=== PATIENT | male | born 1955 | race Caucasian/White ===

== ENCOUNTER → 2019-04-10 08:08 | Outpatient (CLI) | payer BC ==
--- NOTE | ~2019-04-10 | ST ---
PATIENT:DENIS VARNER MEDICAL RECORD: [id number] SEX: M LOCATION:[facility] ORDER #: ADMISSION DATE: 04/10/19 AGE OF PATIENT: 64 REFERRING PHYSICIAN: INTERPRETING PHYSICIAN: VIJI SALAZAR MD DATE OF SERVICE: 04/10/2019 Nuclear Stress Test INDICATIONS: Angina, hypertension, hyperlipidemia, shortness of breath. He was exercised on standard Lexiscan protocol with 25 mCi of sestamibi injected at peak stress, 9 mCi were used previously for rest images. FINDINGS: Gated SPECT reveals preserved ejection fraction at 55% with good wall motioning and thickening and brightening throughout all segments. SPECT IMAGING: Cardiolite was used as myocardial fusion agent. There is moderate ischemia throughout the anteroapical segments. There is as well moderate ischemia throughout the inferior apical segments. This includes the basal, mid apical anterior segments as well as the apex itself, the mid inferior and apical inferior segments. The degree of reversibility is as stated above, it is moderate on both. The amount of myocardium involved is large. OVERALL IMPRESSION: This is a high-risk abnormal nuclear stress test, large area of inducible ischemia anteriorly, apically as well as inferiorly suggestive of multivessel coronary artery disease. We will proceed with coronary angiography as followup study. TRANSINT:[id number] Voice Confirmation ID: [id number] DOCUMENT ID: [id number] VIJI SALAZAR MD CC: ROSSI MCINTYRE [id number] DICTATION DATE: 04/11/19 1028 GRAPHIC MANAGER: 04/12/19 0323 DEP CLI 04/10/19 [facility] [address] [id number]
== END | disposition home or self-care (01) ==
LOC: D.HCCARDIO 08:08
PROVIDERS: ATTEND Internal Medicine Interventional Cardiology
DX: I20.9 Angina pectoris, unspecified (principal)

== ENCOUNTER 2019-04-23 11:25 | Outpatient (CLI) | payer BC ==
[~2019-04-23] VITALS: Ht 182.9 cm; Wt 136.4 kg
--- NOTE | ~2019-04-23 | HEMODYNAMI ---
PATIENT:DENIS VARNER MEDICAL RECORD: [id number] : 57 LOCATION:[facility] ADMISSION DATE: 04/23/19 Generatedon:04/23/201915:21 Patient name: DENIS VARNER Patient #: [id number] SSN: DO B: 1955 Date of study: 04/23/2019 Page: Of Hemodynamic Procedure Report Patient Data Patient Demographics Procedure consent was obtained First Name: DENIS Gender: Male Last Name: TELLY : 1955 Patient #: [id number] Age: 64 year(s) Race: Unknown Additional ID: [id number] Contact details [address]: [address] [place] [address] State: [place] City: [place] Zip code: [address] Admission Admission Data Admission Date: 04/23/2019 Admission Time: 11:25 Weight (lbs.): 299.83 Weight (kg.): 136 Lab Results Lab Result Date: 04/23/2019 Lab Result Time: 0:00 Biochemistry Name Units Result Min Max BUN mg/dl 16 --(---*)-- 7 18 Creatinine mg/dl 0.8 --(-*--)-- 0.6 1.3 CBC Name Units Result Min Max Hemoglobin g/dl 14.4 --(*---)-- 13.5 17.5 Procedure Procedure Types Cath Procedure Diagnostic Procedure [facility] w/Coronaries PCI Procedure Coronary Stent Coronary Stent Initial Procedure Description Procedure Date Procedure Date: 04/23/2019 Procedure Start Time: 14:43 Procedure End Time: 15:11 Procedure Staff Name Function Chandler Felix MD Performing Physician Matthew Sims RT Monitor Alix Medeiros RT Scrub Giacomo Gutierrez RN Nurse Procedure Data Cath Procedure Fluoroscopy Diagnostic fluoroscopy Total fluoroscopy Time: 5.7 time: 5.7 min min Diagnostic fluoroscopy Total fluoroscopy dose: dose: 1291 mGy 1291 mGy Contrast Material Contrast Material Type Amount (ml) Isovue 370 95 Entry Location Entry Primary Successful Side Size Upsize Upsize Entry Closure Liang ccessful Closure Location (Fr) 1 (Fr) 2 (Fr) Remarks Device Remarks Radial Right 6 Fr Mechanical artery Short Compression Femoral Right 6 Fr Exoseal artery Short Estimated blood loss: 10 ml Diagnostic catheters Device Type Used For End Catheter Placement DIAGNOSTIC Wilson 110cm 5 Procedure Fr catheter (062139) Procedure Complications No complications Procedure Medications Medication Administration Route Dosage 0.9% NaCl I.V. 100 ml/hr Oxygen etCO2 Nasal cannula 2 l/min Heparin Flush Bag added to field 2 bags (1000units/500ml NS) Lidocaine 2% added to field 20 Radial Cocktail added to field 1 syringe (Verapamil 2mg/Nitro 400mcg/Heparin 1500units) Versed I.V. 2 mg Fentanyl I.V. Radial Cocktail I.A. 1 syringe (Verapamil 2mg/Nitro 400mcg/Heparin 1500units) Heparin Bolus I.V. 5000 units Integrilin (Bolus I.V. 11.3 ml 2mg/ml) Integrilin (Bolus wasted 8.4 ml 2mg/ml) Integrilin (Bolus I.C. 11.3 ml 2mg/ml) Plavix P.O. 600 mg Hemodynamics Rest HGB: 14.4 (g/dl) Heart Rate: 72 (bpm) Pressure Samples Time Site Value (mmHg) Purpose Heart Use Rate(bpm) 14:47 LV 78/13,17 Snapshot 75 14:48 LV 115/1,14 Snapshot 78 14:48 AO 82/64(74) Pullback 76 14:48 LV 78/5,23 Pullback 76 14:59 AO 87/61(73) Snapshot 72 Gradients Valve Time Site 1 Site 2 Mean SEP/DFP Peak To Heart Use (mmHg) (sec/min) Peak Rate (mmHg) (bpm) Aortic 14:48 LV AO 0 76 78/5,23 82/64(74) Calculations Valve P-P Mean Valve Index Valve Source Name Gradient Area Flow (cm2) Aortic 0 0 Snapshots Pre Cath Intra NCS Post Cath Vital Signs Time Heart Resp SPO2 etCO2 NIBP (mmHg) Rhythm Pain Sedation Rate (ipm) (%) (mmHg) Status Level (bpm) 14:27:57 72 20 95 0 104/84(100) NSR 0 (11) 10(A) , No pain 14:32:11 70 14 96 30.5 113/74(82) NSR 0 (11) 10(A) , No pain 14:36:27 69 16 91 0 110/74(91) NSR 0 (11) 10(A) , No pain 14:40:38 67 13 92 34.3 110/69(95) NSR 0 (11) 10(A) , No pain 14:44:48 68 12 93 37.2 112/69(95) NSR 0 (11) 10(A) , No pain 14:49:02 74 12 91 41 108/65(79) NSR 0 (11) 10(A) , No pain 14:53:16 73 12 93 32 109/74(92) NSR 0 (11) 10(A) , No pain 14:57:32 71 12 93 38 110/73(85) NSR 0 (11) 10(A) , No pain 15:01:46 70 13 94 38.8 117/77(95) NSR 0 (11) 10(A) , No pain 15:06:02 74 14 94 38.7 133/80(105) NSR 0 (11) 10(A) , No pain 15:10:23 74 14 95 36.6 139/88(100) NSR 0 (11) 10(A) , No pain Medications Time Medication Route Dose Verified Delivered Reason Not es Effectiveness by by 14:29:59 0.9% NaCl I.V. 100 Giacomo Giacomo Per physician ml/hr Brenda Gutierrez RN, RN 14:30:08 Oxygen etCO2 2 l/min Giacomo Giacomo for low 02 sats Nasal Lorigan Lorrosi cannula DEONNA RN 14:30:21 Heparin Flush added 2 bags Giacomo Giacomo used for Bag to Lorigan Lorigan procedure (1000units/500ml field YING RN NS) 14:30:32 Lidocaine 2% added 20ml Giacomo Giacomo for local to vial Lorigan Lorigan anesthetic field DEONNA YING 14:30:41 Radial Cocktail added 1 Giacomo Giacomo used for (Verapamil to syringe Lorigan Lorigan procedure 2mg/Nitro field YING RN 400mcg/Heparin 1500units) 14:35:57 Versed I.V. 2 mg Giacomo Giacomo for sedation Brenda Gutierrez RN, RN 14:36:05 Fentanyl I.V. Giacomo Giacomo for sedation Brenda Gutierrez RN, RN 14:46:27 Radial Cocktail I.A. 1 Giacomo Chandler for (Verapamil syringe Brenda Felix vasodilation 2mg/Nitro DEONNA VICENTE 400mcg/Heparin 1500units) 14:56:29 Heparin Bolus I.V. 5000 Giacomo Giacomo for units Brenda Gutierrez anticoagulation RN RN 14:56:53 Integrilin I.V. 11.3 ml Giacomo Giacomo for (Bolus 2mg/ml) Brenda Gutierrez antiplatelet DEONNA YING therapy 14:57:08 Integrilin wasted 8.4 ml Giacomo Giacomo to sharp's (Bolus 2mg/ml) Brenda Gutierrez RN, RN 15:06:28 Integrilin I.C. 11.3 ml Giacomo Chandler for (Bolus 2mg/ml) Brenda Felix antiplatelet DEONNA VICENTE therapy 15:14:20 Plavix P.O. 600 mg Giacomo Giacomo for Brenda Gutierrez antiplatelet DEONNA YING therapy Procedure Log Time Note 14:05:26 Giacomo Gutierrez RN sent for patient. Start room use. 14:10:16 Signed procedure consent form obtained from patient. 14:10:17 Diagnostic Cath status Elective 14:10:19 Time tracking: Regular hours (M-F 7:00 - 5:00) 14:10:22 Plan of Care:Hemodynamics will remain stable., Cardiac rhythm will remain stable., Comfort level will be maintained., Respiratory function will remain adequate., Patient/ family verbilizes understanding of procedure., Procedure tolerated without complication., Recovers from procedure without complications.. 14:21:12 Patient received from Pre/Post Procedure Room to CCL 1 Alert and oriented. Tansferred to table in Supine position. 14:21:14 Warm blankets applied, and nikko hugger turned on for patient comfort. 14:21:16 Correct patient and procedure confirmed by team. 14:21:18 ECG and BP/O2 sat monitors applied to patient. 14:26:51 Baseline sample Acquired. 14:26:51 Vital chart was started 14:26:55 Rhythm: sinus rhythm 14:26:57 Full Disclosure recording started 14:27:08 H&P Date Dictated: 04/04/2019 Within 30 days and on chart., H&P Addendum completed by physician on day of procedure. (MUST COMPLETE FOR ALL OUTPATIENTS). 14:27:09 Pre-procedure instructions explained to patient. 14:27:10 Pre-op teaching completed and patient verbalized understanding. 14:27:12 Family in patients room. 14:27:13 Patient NPO since Midnight. 14:27:15 Is the patient allergic to Iodine/contrast media? No. 14:27:20 Is patient on blood thinner?No 14:27:22 Patient diabetic? No. 14:27:24 Previous problem with sedation/anesthesia? No ? 14:27:24 Snore? Yes 14:27:26 Sleep apnea? No 14:27:27 Deviated septum? No 14:27:27 Opens mouth fully? Yes 14:27:28 Sticks out tongue? Yes 14:27:30 Airway obstruction? No ? 14:27:31 Dentures? No ? 14:29:59 0.9% NaCl 100 ml/hr I.V. was administered by Giacomo Gutierrez RN; Per physician; 14:30:08 Oxygen 2 l/min etCO2 Nasal cannula was administered by Giacomo Gutierrez RN; for low 02 sats; 14:30:21 Heparin Flush Bag (1000units/500ml NS) 2 bags added to field was administered by Giacomo Gutierrez RN; used for procedure; 14:30:32 Lidocaine 2% 20ml vial added to field was administered by Giacomo Gutierrez RN; for local anesthetic; 14:30:41 Radial Cocktail (Verapamil 2mg/Nitro 400mcg/Heparin 1500units) 1 syringe added to field was administered by Giacomo Gutierrez RN; used for procedure; 14:33:46 Pre procedure: right dorsailis pedis pulse 1+ Palpable, but thready & weak; easily obliterated 14:33:48 Modified Andrew's test Ulnar < 7 seconds 14:33:50 Patient pain scale 0/10 ?. 14:33:56 IV patent on arrival in left forearm with 0.9% NaCl at [facility]. 14:33:58 Lab results completed and on chart. 14:34:01 Right Radial & Right Groin area was prepped with chlora-prep and draped in sterile fashion 14:34:02 Alarms reviewed by R. N. 14:34:03 Sharps counted by scrub and verified by R.N. 14:34:06 Use device set Radial Dx or PCI 14:34:08 Tegaderm 4 x 4 (1626W) opened to sterile field. 14:34:08 ACIST Manifold (23816) opened to sterile field. 14:34:09 ACIST Hand Control (56203) opened to sterile field. 14:34:10 ACIST Syringe (87491) opened to sterile field. 14:34:11 Medline Cath Pack ([id number]) opened to sterile field. 14:34:11 Bag Decanter (2002S) opened to sterile field. 14:34:12 DIAGNOSTIC WIRE .035 260cm J wire (933255) opened to sterile field. 14:34:12 MBrace Wrist Support (670260028) opened to sterile field. 14:34:15 SHEATH 6FR Slender (71-7842) opened to sterile field. 14:35:07 --------ALL STOP TIME OUT------ 14:35:08 Final Timeout: patient, procedure, and site verified with staff and physician. All members of the team are in agreement. 14:35:10 Right Radial & Right Groin site verified by team. 14:35:13 Maximum allowable Isovue 370 dose 300ml. Physician notified. (300ml for normal creatinines. For patients with creatinine of 1.7 or higher multiply weight(kg) x 5 divided by creatinine.) 14:35:17 Fire Safety Assessment: A--An alcohol-based skin anteseptic being used preoperatively., C--Open oxygen or nitrous oxide is being used., D--An ESU, laser, or fiber-optic light is being used. 14:35:20 Physical assessment completed. ASA score P 2 - A patient with mild systemic disease as per Chandler Felix MD. 14:35:23 Sedation plan: IV Moderate Sedation Medication:Versed, Fentanyl 14:35:57 Versed 2 mg I.V. was administered by Giacomo Gutierrez RN; for sedation; 14:36:05 Fentanyl I.V. was administered by Giacomo Gutierrez RN; for sedation; 14:36:15 Patient Weight : 299.83 lbs 14:36:40 Lab Result : Creatinine 0.8 mg/dl 14:36:40 Lab Result : BUN 16 mg/dl 14:36:40 Lab Result : Hemoglobin 14.4 g/dl 14:38:44 Zero performed for pressure channel P1 14:42:46 Procedure started. 14:43:18 Local anesthetic to right radial artery with Lidocaine 2% by Chandler Felix MD.INITIAL ACCESS ONLY 14:46:25 A 6 Fr Short sheath was inserted into the Right Radial artery 14:46:27 Radial Cocktail (Verapamil 2mg/Nitro 400mcg/Heparin 1500units) 1 syringe I.A. was administered by Chandler Felix MD; for vasodilation; 14:48:00 A DIAGNOSTIC Wilson 110cm 5 Fr catheter (565555) was advanced over the wire and used for Procedure. 14:48:36 LV angiography performed. 14:48:45 LV gram done using FERNANDEZ 14:48:52 EF : 55 % 14:49:00 Injector settings: Ml/sec: 5, Volume: 15, 14:49:11 LCA angiography performed. 14:50:23 RCA angiography performed. 14:52:16 Catheter removed. 14:52:[address] BARRAZA PCI 14:52:20 SHEATH 6FR [place] (BKF320) opened to sterile field. 14:52:25 Local anesthetic to right femoral artery with Lidocaine 2% by Chandler Felix MD.ADDITIONAL ACCESS 14:53:04 WHISPER 300cm guide wire ([id number]) opened to sterile field. 14:53:14 INFLATOR Merit BasixCompak (ZR5230) opened to sterile field. 14:53:27 A 6 Fr Short sheath was inserted into the Right Femoral artery 14:53:57 GUIDE 6FR XBLAD 4.0 catheter ([id number]) opened to sterile field. 14:54:06 6 Fr XBLAD 4 guide catheter was inserted over the wire 14:55:50 Whisper wire advanced. 14:56:08 Pre PCI Site: [place] pLAD has 99% stenosis. 14:56:29 Heparin Bolus 5000 units I.V. was administered by Giacomo Gutierrez RN; for anticoagulation; 14:56:53 Integrilin (Bolus 2mg/ml) 11.3 ml I.V. was administered by Giacomo Gutierrez RN; for antiplatelet therapy; 14:57:08 Integrilin (Bolus 2mg/ml) 8.4 ml wasted was administered by Giacomo Gutierrez RN; to sharp's; 14:58:53 Wire advanced across lesion. 15:00:17 Inflate balloon Inflation number: 1 A EMERGE OTW 3.0 x 15 balloon ([id number]) was prepped and advanced across the Prox LAD 99, then inflated to 10 ARIANNE for 0:30 (min:sec) . 15:01:32 Balloon removed over the wire. 15:03:07 Place stent Inflation Number: 2 A ANDREA OTW 3.5 x 22 stent ([id number]) was prepped and advanced across the Prox LAD 99. The stent was deployed at 14 ARIANNE for 0:45 (min:sec) 0. 15:04:23 Stent catheter was removed intact over wire. 15:06:28 Integrilin (Bolus 2mg/ml) 11.3 ml I.C. was administered by Chandler Felix MD; for antiplatelet therapy; 15:07:40 EXOSEAL 6Fr (EX600) opened to sterile field. 15:07:50 Wire removed. 15:07:51 Guide catheter removed. 15:08:13 Sheath removed intact; hemostasis achieved with Exoseal to the Right Femoral artery. 15:08:19 TR BAND Large ([id number]) opened to sterile field. 15:08:31 Sheath removed intact; hemostasis achieved with Mechanical Compression to the Right Radial artery. 15:08:33 Procedure ended.(Physican Out) 15:09:42 Fluoroscopy dose: 1291 mGy 15:09:42 Flurop Dose total: 1291 15:09:47 Fluoroscopy time 05.70 minutes. 15:09:54 Contrast amount:Isovue 370 95ml. 15:09:55 Sharps counted by scrub and verified by R.N. 15:09:58 Insertion/operative site no bleeding no hematoma. 15:10:02 Post-op/insertion site Right Femoral artery dressed using a 4 x 4 and Tegaderm. 15:10:05 TR band inflated with 12cc of air. 15:10:07 Post Procedure Pulses reassessed and unchanged 15:10:10 Post-procedure physical assessment completed. ASA score P 2 - A patient with mild systemic disease as per Chandler Felix MD. 15:10:12 Post procedure rhythm: unchanged. 15:10:15 Estimated blood loss: 10 ml 15:10:22 Post procedure instruction explained to patient.Patient verbalizes understanding. 15:10:22 Patient needs reinforcement of post procedure teaching. 15:10:32 Procedure type changed to Cath procedure, Diagnostic procedure, LHC, LHC w/Coronaries, PCI procedure, Coronary Stent, Coronary Stent Initial 15:10:35 Procedure Complication : No complications 15:11:00 Procedure and supply charges have been captured, reviewed, submitted and are correct. 15:11:00 Vital chart was stopped 15:11:01 See physician's report for complete and final results. 15:11:02 Report given to Pre/Post Procedure Room. 15:11:04 Patient transfered to Pre/Post Procedure Room with Stretcher. 15:11:07 Procedure ended. 15:11:07 Full Disclosure recording stopped 15:11:11 End room use (Document Last) 15:14:20 Plavix 600 mg P.O. was administered by Giacomo Gutierrez RN; for antiplatelet therapy; Intervention Summary Intervention Notes Time ActionType Lesion and Equipment Action# Pressure Duration Attributes Used 15:00:17 Inflate Prox LAD EMERGE OTW 1 10 00:30 balloon 3.0 x 15 balloon ([id number]) 15:03:07 Place stent Prox LAD ANDREA OTW 3.5 2 14 00:45 x 22 stent ([id number]) Device Usage Item Name Manufacture Quantity Catalog Number Hospital Part Current M inimal Lot# / Charge Number Stock Stock Serial# Code Tegaderm 4 x 3M 1 1626W 211952 202595 923306 5 4 (1626W) ACIST Acist 1 12953 438155 173275 219631 5 Manifold Medical (04528) Systems Inc ACIST Hand Acist 1 32092 625079 201448 951534 5 Control Medical (45152) Systems Inc ACIST Syringe Acist 1 83754 890905 414349 232233 2 0 (68791) Medical Systems Inc Medline Cath Medline 1 [id number] 016009 08682 131549 5 Pack (ORDZ49822) Bag Decanter Microtek 1 2001S 450118 30055 221819 5 (2001S) Medical Inc. DIAGNOSTIC St Bill 1 126807 747555 623578 466561 3 0 WIRE .035 260cm J wire (890838) MBrace Wrist Advanced 1 140-0250-00 631105 56990 375416 5 Support Vascular (591890449) Dynamics SHEATH 6FR Terumo 1 [id number] 892859 336401 564784 5 Slender (80-1060) DIAGNOSTIC Terumo 1 40-5013 076020 274205 705645 5 Wilson 110cm 5 Fr catheter (267077) SHEATH 6FR Terumo 1 ULR862 583636 005222 772406 4 0 [place] (UJX876) WHISPER 300cm Bustos 1 [id number] 135715 795224 735810 5 guide wire Vascular (2159252CF) INFLATOR Merit 1 NX2542 237885 975772 405588 1 5 [employer] Medical BasixCompak (SH5162) GUIDE 6FR Cardinal 1 89812114 801446 551103 922191 3 XBLAD 4.0 Health catheter (01143796) EMERGE OTW [place] 1 [id number] 898491 543330 781613 5 [id number] 3.0 x 15 Scientific balloon ([id number]) ANDREA OTW 3.5 Medtronic 1 [id number] 983097 1213588 576536 5 [id number] x 22 stent ([id number]) EXOSEAL 6Fr Cardinal 1 EX600 767613 143970 350589 1 0 (EX600) Health TR BAND Large Terumo 1 [id number] 547325 424589 026280 4 0 (AUI38DGU) Signature Audit Datil Stage Time Signature Unsigned Intra-Procedure 04/23/2019 Matthew Sims 3:21:42 PM RT(R) Signatures Monitor : Matthew Sims RT Signature : Date : Time : [address] [place] [address]
[2019-04-23] MEDS ORDERED: OMEPRAZOLE40 MG PO (12:05)
[2019-04-23] MEDS ORDERED: TENORMIN50 MG PO (12:06)
[2019-04-23] MEDS ORDERED: PROVENTIL/2.5 MG/3 M INH (12:06)
[2019-04-23] MEDS ORDERED: GEMFIBROZIL600 MG PO (12:06)
[2019-04-23] MEDS ORDERED: COZAAR50 MG PO (12:07)
[2019-04-23] MEDS ORDERED: BAYER CHEWABLE81 MG PO (12:07)
[2019-04-23] MEDS ORDERED: NIASPAN500 MG PO (12:07)
[2019-04-23 12:14] VITALS: BP 123/71; Ht 182.9 cm; Wt 136.4 kg
[2019-04-23 12:34] LABS: BASOPHILS 0.7 % (0-2); HEMATOCRIT 40.5 % (42.0-54.0); HEMOGLOBIN 14.4 g/dL (13.5-17.5); IMMATURE GRANULOCYTES 0.1 % (0-5); LYMPHOCYTES 34.5 % (15-50); MCH 31.1 pg (26.0-34.0); MCHC 35.6 g/dL (31.0-37.0); MCV 87.5 fL (80.0-100.0); MEAN PLATELET VOLUME 10.7 fL (7.4-10.4); MONOCYTES 8.2 % (2-11); NEUTROPHILS 52.5 % (40-80); PLATELET COUNT 156 10x3/uL (130-400); RBC 4.63 10x6/uL (4.20-6.10); RDW 13.8 % (11.5-14.5); WBC 7.4 10x3/uL (4.8-10.8)
[2019-04-23 12:52] LABS: CALC OSMOLALITY 278 mosm/kg (275-300); CALCIUM 9.3 mg/dL (8.5-10.1); CARBON DIOXIDE 23.5 mmol/L (21.0-32.0); CHLORIDE - SERUM 105 mmol/L (98-107); CREATININE - SERUM 0.8 mg/dL (0.6-1.3); GLUCOSE 134 mg/dL (74-106); POTASSIUM - SERUM 4.5 mmol/L (3.5-5.1); SODIUM 138 mmol/L (136-145); UREA NITROGEN 16 mg/dL (7-18); eGFR NON AFRICAN AMERICAN > 90 mL/min (90-120)
[2019-04-23] MEDS ORDERED: PLAVIX75 MG PO (15:32)
--- NOTE | 2019-04-23 15:45 | NUR ---
2L NC, NO RESP DISTRESS. RIGHT WRIST TR BAND AND RIGHT GROIN 6F EXOSEAL CDI, NO BLEEDING OR HEMATOMA NOTED. NO C/O PAIN OR NAUSEA. VSS. FAMILY AT BEDSIDE, CALL LIGHT WITHIN REACH.
--- NOTE | 2019-04-23 16:15 | NUR ---
RESTING QUIETLY WITH EYES CLOSED. RIGHT GROIN 6F EXOSEAL AND RIGHT WRIST TR BAND CDI, NO BLEEDING OR HEMATOMA NOTED TO EITHER SITE. DENIES ANY NEEDS. VSS. CALL LIGHT WITHIN REACH.
--- NOTE | 2019-04-23 16:30 | NUR ---
CONTINUES TO REST COMFORTABLY WITH NO C/O. RIGHT WRIST TR BAND AND RIGHT GROIN 6F EXOSEAL CDI, NO BLEEDING OR HEMATOMA NOTED. DENIES ANY NEEDS. VSS. CALL LIGHT WITHIN REACH.
--- NOTE | 2019-04-23 17:00 | NUR ---
RIGHT WRIST TR BAND AND RIGHT GROIN 6F EXOSEAL CDI, NO BLEEDING OR HEMATOMA NOTED. 2L NC WITH NO RESP DISTRESS. NO NEEDS OR C/O VOICED AT THIS TIME. VSS. CALL LIGHT WITHIN REACH.
--- NOTE | 2019-04-23 18:00 | NUR ---
HOB ELEVATED 30 DEGREES. RIGHT GROIN 6F EXOSEAL CDI, NO BLEEDING NTOED. 4CC OF AIR REMOVED FROM TR BAND WITH NO BLEEDING NOTED. SIPPING ON DRINK WITH NO C/O NAUSEA. VSS. WILL CONTINUE TO MONITOR CLOSELY.
--- NOTE | 2019-04-23 18:11 | NUR ---
DISCHARGE INSTRUCTIONS ALONG WITH PLAVIX PRESCRIPTION GIVEN TO PT AND , BOTH VERBALIZED UNDERSTANDING.
--- NOTE | 2019-04-23 18:25 | NUR ---
4CC OF AIR REMOVED FROM TR BAND WITH NO BLEEDING NOTED.
--- NOTE | 2019-04-23 18:48 | NUR ---
LEFT PIV D/C'D WITH CATHETER INTACT, BAND AID TO SITE. RIGHT GROIN 6F EXOSEAL CDI, NO BLEEDING OR HEMATOMA NOTED. UP TO BEDSIDE TO GET DRESSED. AMBULATED TO RESTROOM.
--- NOTE | 2019-04-23 18:55 | NUR ---
REMAINING AIR REMOVED FROM TR BAND WITH NO BLEEDING NOTED. DRESSING PLACED TO SITE.
--- NOTE | 2019-04-23 19:05 | NUR ---
TAKEN OUT VIA WHEELCHAIR BY CATH PUBLIC RELATIONS WRITER. LEFT FACILITY WITH FAMILY AND ALL PERSONAL BELONGINGS.
--- NOTE | 2019-04-25 11:12 | OP ---
PATIENT NAME: DENIS VARNER MEDICAL RECORD: [id number] :57 LOCATION:D.[facility] ADMISSION DATE: SURGEON: PITA TINSLEY MD DATE OF OPERATION: 04/23/2019 PROCEDURES: Left heart catheterization, selective coronary angiography, initially right radial approach and we switched to leg for intervention. FINDINGS: Left ventriculography in 30-degree FERNANDEZ view: Normal wall motion and normal systolic function. CORONARY ANATOMY: LEFT MAIN: Left main is free of disease. LAD: It has a long area of a subtotal stenosis with ALICIA 2 flow distally. CIRCUMFLEX: Circumflex has 80% stenosis. RIGHT CORONARY ARTERY: Dominant artery, gives rise to PDA, free of disease. PLAN: Intervention to LAD momentarily. DESCRIPTION OF PROCEDURE: We switched from a radial approach to a femoral approach due to size of the vessel. XB LAD 4 guiding catheter provided good guide catheter support followed by 300 cm Whisper wire was placed across the subtotal LAD down this portion of vessel. Preformed balloon was 3.0 x 15 mm Jewell. This did show improvement in the lesion; however, with some distal embolization, the patient was given IC Integrilin. Next, stent deployed was 3.5 x 22 mm Anatone drug eluting stent at 14 atmospheres. Final angiography shows excellent resolution of a subtotal stenosis with no significant residual. ALICIA flow was 3. At the end of procedure, IC and intravenous Integrilin was used in the case. The patient was loaded with p.o. Plavix. Sheath was closed with ExoSeal device and TR band respectively. TRANSINT:[id number] Voice Confirmation ID: [id number] DOCUMENT ID: [id number] PITA TINSLEY MD at 1112 CC: [id number] DICTATION DATE: 04/23/19 1514 MANAGER DISTRIBUTION: 04/23/19 2139 [facility] CLI 04/23/19 [place] [id number] [place] [id number]
== END 2019-04-23 19:05 | disposition home or self-care (01) ==
LOC: D.CATH 11:25
PROVIDERS: ATTEND Internal Medicine Interventional Cardiology
DX: I20.9 Angina pectoris, unspecified (principal); R94.30 Abnormal result of cardiovascular function study, unspecified; Z01.812 Encounter for preprocedural laboratory examination

== ENCOUNTER 2019-05-08 11:12 | Outpatient (CLI) | payer BC ==
[~2019-05-08] VITALS: Ht 182.9 cm; Wt 134.1 kg
--- NOTE | ~2019-05-08 | HEMODYNAMI ---
PATIENT:DENIS VARNER MEDICAL RECORD: [id number] : 57 LOCATION:[facility] ADMISSION DATE: 05/08/19 Generatedon:05/08/201913:38 Patient name: DENIS VARNER Patient #: [id number] SSN: DO B: 1955 Date of study: 05/08/2019 Page: Of Hemodynamic Procedure Report Patient Data Patient Demographics Procedure consent was obtained First Name: DENIS Gender: Male Last Name: TELLY : 1955 Patient #: [id number] Age: 64 year(s) Race: Unknown Additional ID: [id number] Contact details [address]: [address] [place] [address] State: [place] City: [place] Zip code: [address] Past Medical History Allergies: No known allergies Admission Admission Data Admission Date: 05/08/2019 Admission Time: 11:12 Weight (lbs.): 295.42 Weight (kg.): 134 Lab Results Lab Result Date: 05/08/2019 Lab Result Time: 0:00 Biochemistry Name Units Result Min Max BUN mg/dl 13 --(--*-)-- 7 18 Creatinine mg/dl 0.7 --(*---)-- 0.6 1.3 CBC Name Units Result Min Max Hematocrit % 40.8 -*(----)-- 42 54 Hemoglobin g/dl 14.4 --(*---)-- 13.5 17.5 Procedure Procedure Types Cath Procedure PCI Procedure Coronary Stent Coronary Stent Initial Procedure Description Procedure Date Procedure Date: 05/08/2019 Procedure Start Time: 13:20 Procedure Staff Name Function Chandler Felix MD Performing Physician Alix Medeiros RT Monitor Jimmy Varela RT Scrub Judith Larkin RN Nurse Procedure Data Cath Procedure Fluoroscopy Diagnostic fluoroscopy Total fluoroscopy Time: 2.8 time: 2.8 min min Diagnostic fluoroscopy Total fluoroscopy dose: 504 dose: 504 mGy mGy Contrast Material Contrast Material Type Amount (ml) Isovue 300 60 Entry Location Entry Primary Successful Side Size Upsize Upsize Entry Closure Succes sful Closure Location (Fr) 1 (Fr) 2 (Fr) Remarks Device Remarks Femoral Right 6 Fr Exoseal artery Short Estimated blood loss: 10 ml Procedure Complications No complications Procedure Medications Medication Administration Route Dosage 0.9% NaCl I.V. 100 ml/hr Oxygen etCO2 Nasal cannula 2 l/min Lidocaine 2% added to field 20 Heparin Flush Bag added to field 2 bags (1000units/500ml NS) Versed I.V. 2 mg Fentanyl I.V. 50 mcg Fentanyl I.V. 50 mcg Heparin Bolus I.V. 5000 units Hemodynamics Rest Pre Cath Intra NCS Post Cath Vital Signs Time Heart Resp SPO2 etCO2 NIBP (mmHg) Rhythm Pain Sedation Rate (ipm) (%) (mmHg) Status Level (bpm) 13:07:13 65 17 99 35.8 128/85(104) NSR 0 (11) 10(A) , No pain 13:11:38 70 20 100 30.5 128/84(100) NSR 0 (11) 10(A) , No pain 13:15:58 70 17 98 34.3 125/84(98) NSR 0 (11) 10(A) , No pain 13:20:20 63 15 98 29.6 122/75(100) NSR 0 (11) 10(A) , No pain 13:24:42 63 14 96 34.9 131/84(108) NSR 0 (11) 10(A) , No pain 13:29:10 65 16 96 35.8 136/78(104) NSR 0 (11) 10(A) , No pain 13:33:35 66 13 98 36.5 127/93(107) NSR 0 (11) 10(A) , No pain Medications Time Medication Route Dose Verified Delivered Reason Notes Effectiveness by by 13:06:07 0.9% NaCl I.V. 100 Chandler Wong used for ml/hr [facility]arkin procedure MD YING 13:06:14 Oxygen etCO2 2 Chandler Wong used for Nasal l/min [facility] procedure cannula MD YING 13:06:18 Lidocaine 2% added 20ml Chandler Arteaga for local to vial [facility] anesthetic field MD VICENTE 13:06:23 Heparin Flush added 2 Chandler Chandler used for Bag to bags [facility] procedure (1000units/500ml field MD VICENTE NS) 13:20:00 Versed I.V. 2 mg Chandler [place] for sedation [facility] Vini Larkin MD RN 13:20:04 Fentanyl I.V. 50 Chandler Fallonyla for sedation [facility] Vini Larkin MD, RN 13:25:16 Fentanyl I.V. 50 Chandler [place] for sedation [facility] Vini Larkin MD, RN 13:27:27 Heparin Bolus I.V. 5000 Chandler Wong for verif ied units [facility] anticoagulation with Dr. VICENTE RN [place] Procedure Log Time Note 12:51:16 Signed procedure consent form obtained from patient. 12:51:22 Diagnostic Cath status Elective 12:51:23 Time tracking: Regular hours (M-F 7:00 - 5:00) 12:51:28 Plan of Care:Hemodynamics will remain stable., Cardiac rhythm will remain stable., Comfort level will be maintained., Respiratory function will remain adequate., Patient/ family verbilizes understanding of procedure., Procedure tolerated without complication., Recovers from procedure without complications.. 12:51:38 H&P Date Dictated: 05/08/2019 Within 30 days and on chart., H&P Addendum completed by physician on day of procedure. (MUST COMPLETE FOR ALL OUTPATIENTS). 12:51:44 Patient allergic to No known allergies 12:52:34 Patient Weight : 295.42 lbs 12:53:44 Lab Result : BUN 13 mg/dl 12:53:44 Lab Result : Creatinine 0.7 mg/dl 12:53:44 Lab Result : Hematocrit 40.8 % 12:53:44 Lab Result : Hemoglobin 14.4 g/dl 12:53:57 Judith Larkin RN sent for patient. Start room use. 13:01:28 Patient received from Pre/Post Procedure Room to CCL 1 Alert and oriented. Tansferred to table in Supine position. 13:01:29 Warm blankets applied, and nikko hugger turned on for patient comfort. 13:01:29 Correct patient and procedure confirmed by team. 13:01:30 ECG and BP/O2 sat monitors applied to patient. 13:01:31 Pre-procedure instructions explained to patient. 13:01:31 Pre-op teaching completed and patient verbalized understanding. 13:01:34 Family in waiting room. 13:01:36 Patient NPO since Breakfast. 13:01:40 Is the patient allergic to Iodine/contrast media? No. 13:01:50 Is patient on blood thinner?Yes 13:01:53 ACC The patient was administered the following blood thiners within the last 24 hours: ACCPlavix 13:05:55 Vital chart was started 13:06:07 0.9% NaCl 100 ml/hr I.V. was administered by Judith Larkin RN; used for procedure; 13:06:14 Oxygen 2 l/min etCO2 Nasal cannula was administered by Judith Larkin RN; used for procedure; 13:06:18 Lidocaine 2% 20ml vial added to field was administered by Chandler Felix MD; for local anesthetic; 13:06:23 Heparin Flush Bag (1000units/500ml NS) 2 bags added to field was administered by Chandler Felix MD; used for procedure; 13:14:54 Rhythm: sinus rhythm 13:14:55 Full Disclosure recording started 13:15:02 Patient diabetic? No. 13:15:08 Previous problem with sedation/anesthesia? No ? 13:15:17 Snore? Yes 13:15:18 Sleep apnea? No 13:15:19 Deviated septum? No 13:15:20 Opens mouth fully? Yes 13:15:21 Sticks out tongue? Yes 13:15:25 Airway obstruction? No ? 13:15:28 Dentures? No ? 13:15:31 Pre procedure: right dorsailis pedis pulse 1+ Palpable, but thready & weak; easily obliterated 13:15:33 Patient pain scale 0/10 ?. 13:15:39 IV patent on arrival in left hand with 0.9% NaCl at KVO. 13:15:42 Lab results completed and on chart. 13:15:45 Right groin area was prepped with chlora-prep and draped in sterile fashion 13:15:47 Alarms reviewed by R. N. 13:15:48 Sharps counted by scrub and verified by R.N. 13:16:00 Use device set CATH PACK 13:16:01 ACIST Syringe (04329) opened to sterile field. 13:16:01 ACIST Hand Control (92007) opened to sterile field. 13:16:02 ACIST Manifold (27010) opened to sterile field. 13:16:02 Medline Cath Pack ([id number]) opened to sterile field. 13:16:02 Bag Decanter (2001S) opened to sterile field. 13:16:03 DIAGNOSTIC WIRE .035 260cm J wire (523745) opened to sterile field. 13:16:20 SHEATH 6FR [place] (NRW662) opened to sterile field. 13:16:20 INFLATOR Merit BasixCompak (MB5882) opened to sterile field. 13:16:21 BMW 300cm Straight [place] 2 wire (2791368) opened to sterile field. 13:17:39 GUIDE 6FR XBLAD 4.0 catheter ([id number]) opened to sterile field. 13:18:53 --------ALL STOP TIME OUT------ 13:18:54 Final Timeout: patient, procedure, and site verified with staff and physician. All members of the team are in agreement. 13:18:55 Right groin site verified by team. 13:18:57 Maximum allowable Isovue 300 dose 300ml. Physician notified. (300ml for normal creatinines. For patients with creatinine of 1.7 or higher multiply weight(kg) x 5 divided by creatinine.) 13:19:00 Fire Safety Assessment: A--An alcohol-based skin anteseptic being used preoperatively., C--Open oxygen or nitrous oxide is being used., D--An ESU, laser, or fiber-optic light is being used. 13:19:02 Physical assessment completed. ASA score P 2 - A patient with mild systemic disease as per Chandler Felix MD. 13:19:05 Sedation plan: IV Moderate Sedation Medication:Versed, Fentanyl 13:20:00 Versed 2 mg I.V. was administered by Judith Larkin RN; for sedation; 13:20:04 Fentanyl 50 mcg I.V. was administered by Judith Larkin RN; for sedation; 13:20:46 Procedure started. 13:20:52 Local anesthetic to right femoral artery with Lidocaine 2% by Chandler Felix MD.INITIAL ACCESS ONLY 13:21:20 Zero performed for pressure channel P1 13:21:25 Zero performed for pressure channel P1 13:22:17 Zero performed for pressure channel P1 13:22:38 A 6 Fr Short sheath was inserted into the Right Femoral artery 13:23:11 6 Fr XBLAD 4 guide catheter was inserted over the wire 13:23:27 GLIDE WIRE ANGLE 260cm (XC0206) opened to sterile field. 13:24:17 MAGIC TORQUE 180cm 0.035 wire ([id number]) opened to sterile field. 13:24:51 GLIDE WIRE USED TO ADVANCE GUIDE 13:25:16 Fentanyl 50 mcg I.V. was administered by Judith Larkin RN; for sedation; 13:26:50 WHISPER 300 wire advanced. 13:27:27 Heparin Bolus 5000 units I.V. was administered by Judith Larkin RN; for anticoagulation; verified with Dr. Rodriguez 13:30:23 Place stent Inflation Number: 1 A ANDREA RX 3.0 x 18 stent ([id number]) was prepped and advanced across the Mid CX 80. The stent was deployed at 14 ARIANNE for 0:20 (min:sec) 0. 13:30:51 Stent catheter was removed intact over wire. 13:30:52 Wire removed. 13:30:53 Guide catheter removed. 13:31:03 EXOSEAL 6Fr (EX600) opened to sterile field. 13:31:45 Sheath removed intact; hemostasis achieved with Exoseal to the Right Femoral artery. 13:31:48 Procedure ended.(Physican Out) 13:31:59 Fluoroscopy time 02.80 minutes. 13:32:04 Flurop Dose total: 504 13:32:04 Fluoroscopy dose: 504 mGy 13:32:08 Contrast amount:Isovue 300 60ml. 13:32:10 Sharps counted by scrub and verified by R.N. 13:32:13 Post-op/insertion site Right Femoral artery dressed using a 4 x 4 and Tegaderm. 13:32:15 Post-procedure physical assessment completed. ASA score P 2 - A patient with mild systemic disease as per Chandler Felix MD. 13:32:19 Post procedure rhythm: sinus rhythm 13:32:21 Estimated blood loss: 10 ml 13:32:24 Post procedure instruction explained to patient.Patient verbalizes understanding. 13:32:24 Patient needs reinforcement of post procedure teaching. 13:33:49 Procedure and supply charges have been captured, reviewed, submitted and are correct. 13:33:51 Procedure Complication : No complications 13:33:53 Vital chart was stopped 13:33:53 See physician's report for complete and final results. 13:33:54 Report given to Pre/Post Procedure Room. 13:33:57 Patient transfered to Pre/Post Procedure Room with Bed. 13:33:59 End room use (Document Last) Intervention Summary Intervention Notes Time ActionType Lesion and Equipment Used Action# Pressure Duration Attributes 13:30:23 Place stent Mid CX ANDREA RX 3.0 x 1 14 00:20 18 stent ([id number]) Device Usage Item Name Manufacture Quantity Catalog Hospital Part Current [facility] Lot# / Number Charge Number Stock Stock Serial# Code ACIST Syringe Acist 1 63732 729726 991449 843614 20 (21318) [employer] Inc ACIST Hand Acist 1 89519 790640 052636 412148 5 Control Medical (66938) Systems Inc ACIST Manifold Acist 1 53467 429049 535570 988905 5 (28780) Medical Systems Inc Medline Cath Medline 1 [id number] 473743 14754 542456 5 Pack ([id number]) Bag Decanter Microtek 1 2001S 456713 52447 478674 5 (2001S) Medical Inc. DIAGNOSTIC St Bill 1 008089 901122 022581 690415 30 WIRE .035 260cm J wire (104415) SHEATH 6FR Terumo 1 VKO319 299712 810890 025416 40 [place] (WNV780) INFLATOR Merit Merit 1 MI2341 731012 507576 775412 [facility] (GD4641) BMW 300cm Bustos 1 5645994 444886 531434 622170 5 Straight Vascular [place] 2 wire (6763353) GUIDE 6FR Cardinal 1 [id number] 685627 262394 057530 3 XBLAD 4.0 Health catheter (86737797) GLIDE WIRE Terumo 1 QQ8460 218119 278139 044492 5 ANGLE 260cm (KO6481) MAGIC TORQUE [place] 1 [id number] 034183 077781 606171 1 180cm 0.035 Scientific wire ([id number]) ANDREA RX 3.0 x Medtronic 1 [id number] 780302 9378640 711254 5 [id number] 18 stent ([id number]) EXOSEAL 6Fr Cardinal 1 EX600 281380 161124 816796 10 (EX600) Health Signature Audit [place] Stage Time Signature Unsigned Intra-Procedure 05/08/2019 Alix Medeiros 1:38:28 PM RT(R) Signatures Monitor : Alix Medeiros Signature : RT Date : Time : [address] [address]
[~2019-05-08 11:12] MED LIST: BAYER CHEWABLE81 MG PO; COZAAR50 MG PO; GEMFIBROZIL600 MG PO; NIASPAN500 MG PO; OMEPRAZOLE40 MG PO; PLAVIX75 MG PO; PROVENTIL/2.5 MG/3 M INH; TENORMIN50 MG PO
[2019-05-08 11:34] VITALS: BP 119/80; Ht 182.9 cm; Wt 134.1 kg
[2019-05-08 11:45] LABS: BASOPHILS 0.6 % (0-2); EOSINOPHILS 4.7 % (0-7); HEMATOCRIT 40.8 % (42.0-54.0); HEMOGLOBIN 14.4 g/dL (13.5-17.5); IMMATURE GRANULOCYTES 0.3 % (0-5); LYMPHOCYTES 29.8 % (15-50); MCH 30.9 pg (26.0-34.0); MCHC 35.3 g/dL (31.0-37.0); MCV 87.6 fL (80.0-100.0); MEAN PLATELET VOLUME 10.8 fL (7.4-10.4); MONOCYTES 6.7 % (2-11); NEUTROPHILS 57.9 % (40-80); PLATELET COUNT 150 10x3/uL (130-400); RBC 4.66 10x6/uL (4.20-6.10); WBC 7.7 10x3/uL (4.8-10.8)
[2019-05-08 11:55] LABS: CALC OSMOLALITY 275 mosm/kg (275-300); CALCIUM 9.5 mg/dL (8.5-10.1); CARBON DIOXIDE 26.8 mmol/L (21.0-32.0); CHLORIDE - SERUM 104 mmol/L (98-107); CREATININE - SERUM 0.7 mg/dL (0.6-1.3); GLUCOSE 107 mg/dL (74-106); POTASSIUM - SERUM 4.4 mmol/L (3.5-5.1); SODIUM 138 mmol/L (136-145); UREA NITROGEN 13 mg/dL (7-18); eGFR NON AFRICAN AMERICAN > 90 mL/min (90-120)
--- NOTE | 2019-05-08 13:57 | NUR ---
DR TINSLEY HAS ROUNDED ON PT, PT IS ALERT, DENIES ANY C/O CHEST PAIN OR NAUSEA. 6 FR EXOSEAL IS CDI TO RIGHT GROIN. PEDAL PULSES PALPABLE. HOB IS FLAT, PT INSTRUCTED TO KEEP HEAD FLAT TO PILLOW AND RIGHT LEG STRAIGHT. VSS, AT BEDSIDE,. CALL LIGHT IN REACH.
--- NOTE | 2019-05-08 14:07 | NUR ---
PT SLEEPING, AT BEDSIDE. VSS, DRESSING CDI TO RIGHT GROIN, PEDAL PULSES PALPABLE. HOB IS FLAT, PO FLUIDS AT BEDSIDE.
--- NOTE | 2019-05-08 14:40 | NUR ---
DRESSING REMAINS CDI, AREA IS SOFT AND NONTENDER. VSS, HOB IS FLAT, CALL LIGHT IN REACH.
--- NOTE | 2019-05-08 15:08 | NUR ---
PT DENIES ANY C/O. DRESSING CDI, PEDAL PULSES PALPABLE. HOB IS FLAT, AT BEDSIDE.
--- NOTE | 2019-05-08 15:39 | NUR ---
PT SLEEPING INTERMITTENTLY, DRESSING CDI, PEDAL PULSES PALPABLE. HOB IS FLAT, VSS.
--- NOTE | 2019-05-08 16:37 | NUR ---
HOB ELEVATED 30 DEGREES AND SANDWICH SERVED. PT IS ALERT AND DENIES ANY C/O. VSS, DRESSING CDI, PEDAL PULSES 2+.
--- NOTE | 2019-05-08 16:58 | NUR ---
HOB FULLY ELEVATED, DRESSING CDI, PEDAL PULSES PALPABLE. PT IS ALERT AND DENIES ANY C/O. NSR AT 73, BP IS 111/68. DC INSTRUCTIONS REVIEWED WITH PT AND WHO VERBALIZE UNDERSTANDING.
--- NOTE | 2019-05-08 17:09 | NUR ---
LEFT HAND PIV D/C'D WITH CATH TIP INTACT. PT TOLERATED WELL. FAMILY AT BEDSIDE. PT INSTRUCTED TO GET UP AND DRESSED. NO ASSISTANCE NEEDED.
--- NOTE | 2019-05-08 17:20 | NUR ---
PT TAKEN TO VEHICLE BY WHEELCHAIR. NO S/S OF DISTRESS NOTED. RIGHT GROIN DRESSING C/D/I. NO S/S OF HEMATOMA NOTED. ALL BELONGINGS AND PAPERWORK IN HAND.
--- NOTE | 2019-05-09 09:47 | OP ---
PATIENT NAME: DENIS VARNER MEDICAL RECORD: [id number] :57 LOCATION:D.CAT ADMISSION DATE: SURGEON: PITA TINSLEY MD DATE OF OPERATION: 05/08/2019 PROCEDURE: WAREHOUSE DIRECTOR and stent to the circ. DESCRIPTION OF PROCEDURE: A 6-Burkin[place] sheath was placed in the right femoral artery. XB LAD guiding catheter provided excellent guide catheter support. A 300-cm Whisper wire was placed across the tightly occluded 80% circumflex, distal portion of vessel. Stent deployed was a 3.0 x 18 [place] drug-eluting stent up to 14 atmospheres. Final angiography shows excellent resolution of 80% stenosis with no significant residual. ALICIA flow was 3 throughout the procedure. Sheath was closed with ExoSeal device. The patient was previously on Plavix. Heparin was used during the case. TRANSINT:[id number] Voice Confirmation ID: [id number] DOCUMENT ID: [id number] PITA TINSLEY MD at 0947 CC: [id number] DICTATION DATE: 05/08/19 1336 SENIOR VICE PRESIDENT & GENERAL COUNSEL: 05/08/19 1415 DEP CLI 05/08/19 [id number] [place] [address]
--- NOTE | 2019-05-09 09:47 | HP ---
PATIENT: DENIS VARNER MEDICAL RECORD: [id number] ACCOUNT: [id number] LOCATION:[facility] : 57 ADMISSION DATE: 05/08/19 PCP: ROSSI MCINTYRE MD HISTORY AND PHYSICAL EXAMINATION HISTORY OF PRESENT ILLNESS: A 64-year-old gentleman with history of coronary artery disease, status post recent intervention to the LAD. He is being brought back for the circumflex in a staged fashion. He has been having intermittent angina still on a combination of beta-blockade and calcium channel brian. PAST MEDICAL HISTORY: Includes; 1. History of hypertension and hyperlipidemia. 2. Coronary artery disease as described above. MEDICATIONS: Typically include Plavix 75 every day, atenolol 50 every day, Lopid 600 b.i.d., losartan 50 every day, Niaspan 500 mg every day, aspirin 81 every day. PHYSICAL EXAMINATION: GENERAL: Pleasant gentleman, in no acute distress. HEENT: Normocephalic, atraumatic. NECK: No JVD or bruit. HEART: Regular. LUNGS: Lung rodriguez clear. ABDOMEN: Soft, nontender. EXTREMITIES: Pulses 2+. No edema. IMPRESSION: Plan for intervention of circ OM today. TRANSINT:[id number] Voice Confirmation ID: [id number] DOCUMENT ID: [id number] PITA TINSLEY MD at 0947 CC: [id number] DICTATION DATE: 05/08/19 1335 FUR DYER: 05/08/19 1350 DEP CLI 05/08/19 [address] [place] [address]
== END 2019-05-08 17:20 | disposition home or self-care (01) ==
LOC: D.CATH 11:12
PROVIDERS: ATTEND Internal Medicine Interventional Cardiology
DX: I25.119 Atherosclerotic heart disease of native coronary artery with unspecified angina pectoris (principal); Z01.812 Encounter for preprocedural laboratory examination; Z95.5 Presence of coronary angioplasty implant and graft; I10 Essential (primary) hypertension; E78.5 Hyperlipidemia, unspecified; Z79.02 Long term (current) use of antithrombotics/antiplatelets; Z79.82 Long term (current) use of aspirin; Z79.899 Other long term (current) drug therapy